=== PATIENT | female | born 1985 | race American Indian/Alaskan Native ===

== ENCOUNTER 2020-03-24 08:56 | Emergency (ER) | payer SELFPAY ==
[2020-03-24 09:02] VITALS: BP 139/88
--- NOTE | 2020-03-24 09:32 | Emergency Department Report ---
ED ENT HPI - General Chief complaint: Earache Stated complaint: RINGING IN EAR Time Seen by Provider: 03/24/20 09:20 Source: patient Mode of arrival: Ambulatory Limitations: No Limitations - History of Present Illness Initial comments: 34-year-old female presents to the ER today complaint of ringing to her ears. Onset 2 days ago. Patient states that she feels it more in her left ear. She denies any associated pain. He states that she feels like the ringing in her ear is causing her tooth in her left upper jaw to hurt. She reports nasal congestion but no rhinorrhea. Denies any sore throat or cough. She denies any injury to her ear. She denies any drainage from the ear. She denies any hearing loss. She reports no dizziness or headache. She states she tried Afrin once yesterday without any relief. She reports no other symptoms at this time. MD complaint: other (ringing in left ear) -: days(s) (2) Location: L ear - Related Data Previous Rx's Medication Instructions Recorded Last Taken Type Ibuprofen [Motrin 800 MG tab] 800 mg PO Q8HR PRN #30 tablet 09/02/15 Unknown Rx Penicillin Vk [Veetids TAB] 500 mg PO QID #40 tablet 09/02/15 Unknown Rx Fluticasone [Flonase] 2 spray NS QDAY #1 bottle 03/24/20 Unknown Rx Pseudoephedrine ER [Sudafed 12 Hr] 120 mg PO BID #20 tablet.er 03/24/20 Unknown Rx Allergies Allergy/AdvReac Type Severity Reaction Status Date / Time No Known Allergies Allergy Unverified 09/02/15 07:02 ED Dental HPI - General Chief complaint: Earache Stated complaint: RINGING IN EAR Time Seen by Provider: 03/24/20 09:20 Source: patient Mode of arrival: Ambulatory Limitations: No Limitations - Related Data Previous Rx's Medication Instructions Recorded Last Taken Type Ibuprofen [Motrin 800 MG tab] 800 mg PO Q8HR PRN #30 tablet 09/02/15 Unknown Rx Penicillin Vk [Veetids TAB] 500 mg PO QID #40 tablet 09/02/15 Unknown Rx Fluticasone [Flonase] 2 spray NS QDAY #1 bottle 03/24/20 Unknown Rx Pseudoephedrine ER [Sudafed 12 Hr] 120 mg PO BID #20 tablet.er 03/24/20 Unknown Rx Allergies Allergy/AdvReac Type Severity Reaction Status Date / Time No Known Allergies Allergy Unverified 09/02/15 07:02 ED Review of Systems ROS: Stated complaint: RINGING IN EAR Other details as noted in HPI Comment: All other systems reviewed and negative Constitutional: no symptoms reported ENT: congestion, other (Ringing in the left ear). denies: ear pain, hearing loss Respiratory: denies: cough, shortness of breath, wheezing Cardiovascular: denies: chest pain, palpitations Gastrointestinal: denies: abdominal pain, nausea, vomiting, diarrhea Neurological: denies: headache, weakness, paresthesias ED Past Medical Hx - Past Medical History Previous Medical History?: No - Surgical History Past Surgical History?: Yes Additional Surgical History: oral - Social History Smoking Status: Never Smoker Substance Use Type: None - Medications Home Medications: Home Medications Medication Instructions Recorded Confirmed Last Taken Type Ibuprofen [Motrin 800 MG tab] 800 mg PO Q8HR PRN #30 tablet 09/02/15 Unknown Rx Penicillin Vk [Veetids TAB] 500 mg PO QID #40 tablet 09/02/15 Unknown Rx Fluticasone [Flonase] 2 spray NS QDAY #1 bottle 03/24/20 Unknown Rx Pseudoephedrine ER [Sudafed 12 Hr] 120 mg PO BID #20 tablet.er 03/24/20 Unknown Rx ED Physical Exam - General Limitations: No Limitations General appearance: alert, in no apparent distress - Head Head exam: Present: atraumatic, normocephalic, normal inspection - Eye Eye exam: Present: normal appearance, PERRL, EOMI Pupils: Present: normal accommodation - ENT ENT exam: Present: normal exam, mucous membranes moist, normal external ear exam, other (Cloudy effusion noted behind both TMs; TMs not erythematous. No perforation. Ear canal normal bilaterally) - Expanded ENT Exam Expanded Teeth exam: Present: dental caries (There is small shallow ulcerated area noted to the upper gum just above the premolars. Mild tenderness to palpation. No apparent dental abscess or dental tenderness noted), other - Neck Neck exam: Present: normal inspection. Absent: meningismus - Respiratory Respiratory exam: Absent: respiratory distress - Cardiovascular Cardiovascular Exam: Present: tachycardia (Mild) - GI/Abdominal GI/Abdominal exam: Present: soft. Absent: distended, tenderness - Neurological Exam Neurological exam: Present: alert, oriented X3, CN II-XII intact - Psychiatric Psychiatric exam: Present: normal affect, normal mood, anxious (Mild) ED Course Vital Signs 03/24/20 09:00 Temperature 97.9 F Pulse Rate 117 H Respiratory 16 Rate Blood Pressure 139/88 [Right] O2 Sat by Pulse 99 Oximetry ED Medical Decision Making - Medical Decision Making 0939: Patient presents to the ER complaining of ringing to her ears. She denies any associated pain. Patient is well-appearing, not toxic, does not appear to be in any acute distress. She is neurologically intact and has a normal gait. She is mildly tachycardic likely secondary to being anxious. Remainder vital signs stable. Suspect symptoms related to effusion behind both TMs. No infection to the TMs at this time. No apparent dental abscess. No indication for work-up at this time. Discussed suspected diagnosis and treatment plan with patient. She expressed understanding of instructions and agree with plan. Patient stable at time of discharge. Critical care attestation.: If time is entered above; I have spent that time in minutes in the direct care of this critically ill patient, excluding procedure time. ED Disposition Clinical Impression: Eustachian tube dysfunction, Tinnitus Disposition: - TO HOME OR SELFCARE Is pt being admited?: No Does the pt Need Aspirin: No Condition: Stable Instructions: Eustachian Tube Dysfunction, Tinnitus Additional Instructions: I recommend that you take the Sudafed and use the Flonase as prescribed. You can take Tylenol and/or ibuprofen for pain. Prescriptions: Fluticasone [Flonase] 2 spray NS QDAY #1 bottle Pseudoephedrine ER [Sudafed 12 Hr] 120 mg PO BID #20 tablet.er Referrals: JEFF BOYCE MD [Staff Physician] - 3-5 Days Time of Disposition: 09:33
== END 2020-03-24 10:22 | disposition home or self-care (01) ==
LOC: ED 08:56
DX: H93.12 Tinnitus, left ear (principal); H69.82 Other specified disorders of Eustachian tube, left ear; Z79.899 Other long term (current) drug therapy; Z98.890 Other specified postprocedural states
CPT/HCPCS: 99282